=== PATIENT | female | born 1985 | race African-American/Black ===

== ENCOUNTER 2024-01-10 16:47 | Emergency (ER) | payer MEDICAID, OTHER ==
[~2024-01-10] VITALS: Ht 170.2 cm; Wt 70.4 kg
[2024-01-10 16:59] VITALS: TEMP 98.8
[2024-01-10 17:32] LABS: BASOPHILS % (AUTO) 0.7 % (0.0-2.0); EOSINOPHILS % (AUTO) 0.2 % (1.0-6.0); HEMATOCRIT 39.7 % (36-46); HEMOGLOBIN 13.4 g/dL (12.0-16.0); LYMPHOCYTES # (AUTO) 0.8 K/uL (1.0-4.8); LYMPHOCYTES % (AUTO) 10.1 % (22.0-44.0); MEAN CORPUSCULAR HEMOGLOBIN 32.4 pg (26.0-34.0); MEAN CORPUSCULAR HGB CONC 33.8 G/dL (31.0-37.0); MEAN CORPUSCULAR VOLUME 96 fL (80-100); MONOCYTES # (AUTO) 0.9 K/uL (0.1-1.0); MONOCYTES % (AUTO) 10.4 % (2.0-9.0); NEUTROPHILS # (AUTO) 6.7 K/uL (1.8-7.7); NEUTROPHILS % (AUTO) 78.6 % (40.0-70.0); PLATELET COUNT (AUTO) 268 K/uL (150-450); RED BLOOD CELL COUNT(AUTO) 4.15 MIL/uL (4.00-5.20); RED CELL DISTRIBUTION WIDTH 12.8 % (11.5-14.5); WHITE BLOOD COUNT (AUTO) 8.5 K/uL (4.5-11.0)
[2024-01-10 17:35] LABS: COVID AG,FIA SOURCE NASAL SWAB
[2024-01-10 17:39] LABS: ANION GAP 6 mmol/L (8-16); CALCIUM, TOTAL 8.6 mg/dL (8.8-10.5); CARBON DIOXIDE 29 mmol/L (22-29); CHLORIDE 99 mmol/L (98-107); CREATININE 0.99 mg/dL (0.60-1.30); GLOMERULAR FILTR. RATE CALC > 60 mL/min (>60); GLUCOSE,RANDOM 99 mg/dL (70-110); POTASSIUM 3.5 mmol/L (3.5-5.1); SODIUM SERUM 134 mmol/L (136-145); UREA NITROGEN, BLOOD 15 mg/dL (7-18)
[2024-01-10 17:51] LABS: HCG,QUANTITATIVE 2 mIU/mL (0-6)
[2024-01-10 18:35] LABS: RAPID GROUP A STREP NEGATIVE (NEGATIVE)
[2024-01-10 18:42] LABS: SARS-COV2 (COVID) ANTIGEN,FIA Negative (Negative)
[2024-01-10 18:49] LABS: INFLUENZA TYPE A NEGATIVE FOR TYPE A (NEGATIVE); INFLUENZA TYPE B NEGATIVE FOR TYPE B (NEGATIVE)
[2024-01-10] MEDS: KETOROLAC TROMETHAMINE 60 MG/2 ML VIAL IM ONE (18:50)
[2024-01-10] MEDS: ACETAMINOPHEN 500 MG TABLET PO ONE (18:50)
[2024-01-10 19:02] VITALS: BP 128/77; PULSE 92; RESP 18
[2024-01-10 19:05] LABS: APPEARANCE,URINE CLEAR (CLEAR); BILIRUBIN,URINE NEGATIVE (NEGATIVE); COLOR,URINE LIGHT YELLOW (YELLOW); GLUCOSE, URINE (UA) NEGATIVE (NEGATIVE); KETONES,URINE TRACE mg/dL (NEGATIVE); LEUKOCYTE ESTERASE ,URINE NEGATIVE (NEGATIVE); NITRATE,URINE NEGATIVE (NEGATIVE); OCCULT BLOOD,URINE SMALL (NEGATIVE); PH,URINE 7.5 (5.0-8.0); PROTEIN,URINE NEGATIVE (NEGATIVE); SPECIFIC GRAVITIY, URINE 1.019 (1.003-1.030); UROBILINOGEN,URINE <=1.0 mg/dL (<=1.0)
[2024-01-10 19:23] LABS: BACTERIA,URINE Few /HPF (None Seen); WBC,URINE 0-2 /HPF (0-5)
[2024-01-10] MEDS ORDERED: IBUP-1554 PO (19:41)
[2024-01-10] MEDS ORDERED: ACET-66 PO (19:41)
== END 2024-01-10 19:47 | disposition home or self-care (01) ==
LOC: EMS 16:47
DX: N93.9 Abnormal uterine and vaginal bleeding, unspecified (principal); J06.9 Acute upper respiratory infection, unspecified; Z20.822 Contact with and (suspected) exposure to COVID-19
CPT/HCPCS: 99283; 87426; 80048; 81001; 84702; 85025; 87430; 87804; 36415; 96372; J1885